=== PATIENT | male | born 1980 | race African-American/Black ===

== ENCOUNTER 2018-07-18 20:02 | Emergency (ER) | payer BC ==
[~2018-07-18] VITALS: Ht 182.9 cm; Wt 90.7 kg
[2018-07-18 20:10] VITALS: BP 131/78
[2018-07-18] MEDS ORDERED: TRIAMCINOLONE A80 G2 TOP (20:23)
== END 2018-07-18 20:39 | disposition home or self-care (01) ==
LOC: M.ERS 20:02
DX: L25.9 Unspecified contact dermatitis, unspecified cause (principal); L40.9 Psoriasis, unspecified